=== PATIENT | female | born 1970 | race Caucasian/White ===

== ENCOUNTER 2021-09-30 13:35 | Outpatient (CLI) | payer MEDICARE, SELFPAY | END 2021-09-30 23:59 | disposition short-term general hospital (02) | LOC: LABSPEC 13:37 | PROVIDERS: Referring Provider Physician Assistant; Visit Provider Physician Assistant | DX: U07.1 COVID-19 (principal) | CPT/HCPCS: 87635; U0003; U0005 ==

== ENCOUNTER → 2025-02-03 | Outpatient (CLI) | payer MEDICARE, SELFPAY ==
[2025-02-03 17:04] LABS: Absolute Lymphocyte Count 2.33 X10^3/uL (0.83-4.51); Absolute Neutrophil Count 6.6 X10^3/uL (2.0-7.7); Basophil# 0.08 X10^3/uL; Basophil% 0.8 % (0-1); Hematocrit 47.4 % (37-47); Hemoglobin 15.2 g/dL (12.0-15.0); Lymphocyte # 2.33 X10^3/ul (0.83-4.51); Lymphocyte % 23.8 % (19-41); Mean Corp Hgb Conc 32.1 g/dL (32-36); Mean Corpuscular Volume 90.5 fL (81-99); Mean Platelet Vol. 11.7 fl (6.2-12.0); Monocyte# 0.55 X10^3/uL; Monocyte% 5.6 % (0-10); NRBC Flagged by Analyzer 0 % (0-5); Neutrophil # 6.58 X10^3/uL (2.7-7.7); Neutrophil % 67.4 % (47-70); Platelet Count 264 K/mm3 (150-450); RBC Distribution Width CV 13.4 % (11.6-14.6); RBC Distribution Width SD 45.3 fl (35.1-43.9); Red Blood Count 5.24 M/mm3 (4.2-5.4); White Blood Count 9.8 K/mm3 (4.4-11.0)
[2025-02-03 18:03] LABS: Cholesterol 251 mg/dL (<=200); High Density Lipoprotein 78 mg/dL; Low Density Lipoprotein Calc. 149 mg/dL; Triglycerides 120 mg/dL; Very Low Density Lipoprotein 24 mg/dL (5-40)
[2025-02-03 18:14] LABS: ALB/GLOB Ratio 1.5 RATIO (0.9-2.4); AST(SGOT) 19 U/L (<=31); Alanine Aminotransfer ALT/SGPT 18 U/L (<=34); Albumin, Serum 4.5 g/dL (3.5-5.0); Alkaline Phosphatase 108 U/L (35-104); Anion Gap 13 (5-15); BUN 18 mg/dL (4-19); BUN/Creat Ratio 34.6 RATIO (10-20); Calcium,Total 9.6 mg/dL (7.6-11.0); Carbon Dioxide 21.8 mmol/L (21.0-32.0); Chloride 105 mmol/L (98-108); Creatinine, Serum 0.51 mg/dL (0.70-1.20); EST Glomerular Filtration Rate 111 (>60); Glucose 78 mg/dL (70-99); Potassium 5.7 mmol/L (3.3-5.1); Protein, Total 7.6 g/dL (5.9-8.4); Sodium Level 140 mmol/L (133-145); Total Bilirubin 0.41 mg/dL (0.00-1.30)
== END | disposition home or self-care (01) ==
PROVIDERS: PCP Internal Medicine; Referring Provider Internal Medicine; Visit Provider Internal Medicine
DX: Z13.6 Encounter for screening for cardiovascular disorders (principal); Q05.7 Lumbar spina bifida without hydrocephalus; F41.8 Other specified anxiety disorders
CPT/HCPCS: 36415; 80053; 80061; 84439; 84443; 85025

== ENCOUNTER → 2025-02-12 | Outpatient (CLI) | payer MEDICARE, SELFPAY ==
--- NOTE | 2025-02-12 15:15 | BI_ITS ---
EXAM: SCRN MAMM (CAD)W/ADELINE BILAT 02/12/2025 CLINICAL HISTORY: F, Age 54 y/o , BREAST CANCER SCREENING TECHNIQUE: Bilateral screening digital breast tomosynthesis with 2D and 3D images. Computer aided detection. COMPARISON: Prior exam(s) dated 10/06/2023, 02/20/2023. FINDINGS: TISSUE DENSITY: The breast tissue is extremely dense which lowers the sensitivity of mammography. The mammogram demonstrates that the patient has dense breasts. Supplemental screening with whole breast ultrasound or MRI may be considered for further evaluation. Bilateral Breast Mammographic Findings: No significant masses, calcifications or other abnormalities are identified. BI/SCRN MAMM (CAD)W/ADELINE BILAT IMPRESSION: Right Breast: BIRADS 1 NEGATIVE. Left Breast: BIRADS 1 NEGATIVE. OVERALL FINAL ASSESSMENT: BIRADS 1 NEGATIVE. RECOMMENDATION: Routine annual follow-up in 1 Year A letter with findings and recommendations will be mailed to the patient. Reading Location: [id number]
== END | disposition home or self-care (01) ==
LOC: OPBI 14:29
PROVIDERS: PCP Internal Medicine; Referring Provider Internal Medicine; Visit Provider Internal Medicine
DX: Z12.31 Encounter for screening mammogram for malignant neoplasm of breast (principal)
CPT/HCPCS: 77063; 77067

== ENCOUNTER → 2025-02-28 | Outpatient (CLI) | payer MEDICARE, SELFPAY ==
[2025-02-28 17:33] LABS: Potassium 4.5 mmol/L (3.3-5.1)
== END | disposition home or self-care (01) ==
LOC: BIMLAB 13:55
PROVIDERS: PCP Internal Medicine; Visit Provider Internal Medicine
DX: E87.5 Hyperkalemia (principal)
CPT/HCPCS: 36415; 84132

== ENCOUNTER 2025-04-16 12:15 | Day surgery (SDC) | payer MEDICARE, SELFPAY ==
[2025-04-16] VITALS (7 sets, daily range): BP systolic 89–133; BP diastolic 40–66; PULSE 67–94; RESP 16–18; TEMP 36.4–37.9; O2SAT 96–98; BMI 17.7
--- NOTE | 2025-04-16 12:38 | PCM.PRE.AN2 ---
ASA Classification* ASA Classification ASA Classification: 3 Assessment & Plan Anesthesia* Anesthesia Assessment Anesthesia Assessment: Discussed sedation and/or anesthesia options, risks, benefits, and alternatives with patient/parents/legal guardian/POA. Questions invited. The patient/parents/legal guardian/POA seems to understand and agrees to proceed with anesthesia plan. Reviewed the physical assessment, medical history, allergy history and patient home medications list prior to surgery/procedure/anesthetic and documented any changes. Performed airway and anesthesia risk assessments. Anesthesia Type Anesthesia Type: MAC History Source History Obtained from:: Patient and Parent/ Guardian Anesthesia Focused Assessment* Oxygen Delivery Method: Room Air Airway Assessment Mouth opens: 2 cm Mallampati Score: IV Teeth Condition: Missing Neck Range of motion (ROM): Limited ROM Labs Anesthesia Preop lab: CBC WBC 9.8 K/mm3 (4.4-11.0) 02/03/25 16:05 02/03/25 RBC 5.24 M/mm3 (4.2-5.4) 02/03/25 16:05 02/03/25 Hgb 15.2 g/dL (12.0-15.0) H 02/03/25 16:05 02/03/25 Hct 47.4 % (37-47) H 02/03/25 16:05 02/03/25 Plt Count 264 K/mm3 (150-450) 02/03/25 16:05 02/03/25 CHEMISTRY Potassium 4.5 mmol/L (3.3-5.1) 02/28/25 13:55 02/28/25 Sodium 140 mmol/L (133-145) 02/03/25 16:05 02/03/25 BUN 18 mg/dL (4-19) 02/03/25 16:05 02/03/25 Creatinine 0.51 mg/dL (0.70-1.20) L 02/03/25 16:05 02/03/25 Glucose 78 mg/dL (70-99) 02/03/25 16:05 02/03/25 TSH 3.970 uIU/mL (0.300-4.200) 02/03/25 16:05 02/03/25 COAG Pre-Assessment Diagnosis/Proposed Procedure Planned Operative Procedure(s): COLONOSCOPY Anesthesia History 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 When Was Last Pacemaker Check QUESTION #4 FULL TEXT: You/Your Family Experience fever (hyperthermia) with Anesthesia Last Oral Intake Last Oral intake: Last Oral Intake NPO since Meds taken in AM with sips of water? Meds patient instructed to take am of surgery PONV PONV - real estate sales supervisor: PONV - real estate sales supervisor Female Yes 04/11/25 13:03 HX of Motion Sickness No 04/11/25 13:03 HX of N/V After Surgery No 04/11/25 13:03 Non-Smoker Yes 04/11/25 13:03 Duration of Surgery greater No 04/11/25 13:03 than 60 minutes Number of Risk Factors 2 04/11/25 13:03 PONV Score Moderate Risk 04/11/25 13:03 Height & Weight Height & Weight: Anesthesia: Height & Weight Height 4 ft 9 in 02/03/25 15:25 Respiratory Assessment Respiratory Assessment - real estate sales supervisor: Respiratory Tract Infection Hx - real estate sales supervisor Hx Respiratory Tract Infection No 04/11/25 13:03 STOP Sleep Apnea STOP Sleep Apnea - real estate sales supervisor: STOP Sleep Apnea - real estate sales supervisor Hx Hypertension No 04/11/25 13:03 Hx Sleep Apnea No 04/11/25 13:03 CPAP BIPAP Do you snore loudly (louder No 04/11/25 13:03 than talking or can be heard Do you often feel tired/ No 04/11/25 13:03 fatigued/ sleepy during daytime? Has anyone observed you stop No 04/11/25 13:03 breathing during sleep? STOP Results Negative 04/11/25 13:03 QUESTION #5 FULL TEXT : Do you snore loudly (louder than talking or can be heard through closed doors)? Tobacco Use History Tobacco Use History - real estate sales supervisor: Tobacco Use History - real estate sales supervisor Tobacco Use Smoking Status Never smoker 04/11/25 13:03 Hx Tobacco Use No 04/11/25 13:03 Years Smoking Packs Smoked per Day Smoking Cessation Date was within the last 15 years Hx Smoking Cessation Date Hx Smoking Cessation Counseling Hematologic Medial History Hematologic Hx - real estate sales supervisor: Hematologic Medical Hx - manager forms Hx of Blood Transfusion No 04/11/25 13:03 Hx of Transfusion in last 3 No 04/11/25 13:03 Months Date of Last Transfusion (if within last 3 months) Ever experience any problems No 04/11/25 13:03 with transfusion(s)? Specify any problems Hx of Preganancy in last 3 No 04/11/25 13:03 Months Nurse Filling Out Transfusion [email or web address] 04/11/25 13:03 & Questions: Date: 04/11/25 04/11/25 13:03 Time: 13:08 04/11/25 13:03 Patient unable to answer at this time (ie. confused, unrespo /Reproduction History /Reproductive History - real estate sales supervisor: /Reproductive Hx- real estate sales supervisor Hx Now Gestational Age (in weeks): EDC: Hx Hx Para Hx Section SAB PFSH Medical History (Updated 04/11/25 @ 13:11 by Dave Dawson) Wears partial dentures Uses wheelchair Serum potassium elevated Chronic pain Encounter to establish care Colon cancer screening Health care maintenance Depression with anxiety Spina bifida Ileostomy in place Neuropathy, lower extremity Muscle spasms of lower extremity Fatigue Home Medications ?Medication ?Instructions ?Recorded ?Last Taken ?Type tizanidine 4 mg capsule 4 mg PO QHS PRN muscle spasticity 02/03/25 04/15/25 History sod picosulf 10 mg-magnes 3.5 175 ml PO QAM 1 dose #350 mL 02/12/25 04/15/25 Rx gram-citric 12 gram/175 mL oral solution (Clenpiq) Handicap Placard #2 ea 02/13/25 Unknown Rx Allergy/AdvReac Type Severity Reaction Status Date / Time red dye Allergy Other Verified 04/11/25 13:02 Sulfa (Sulfonamide AdvReac Rash Verified 04/11/25 13:02 Antibiotics) Family History Mother Breast cancer Father Hypertension Heart disease Unknown Brain cancer Grandmother Breast cancer Hypertension Grandfather Emphysema lung Other Spina bifida Surgical History Ventriculo-peritoneal shunt status S/P ventricular shunt placement H/O lithotripsy Social History adopted: No household members: family current occupational status: disabled pets and animals: No Smoking Status: Never smoker alcohol intake: current alcohol intake frequency: a few times a month substance use type: does not use diet: lactose free caffeine: No frequency: other details: In wheelchair do you feel safe at home: Yes Review of Systems (Anesthesia) ROS Narrative System reviewed and no additional complaints, except as documented.
[2025-04-16] MEDS: Lactated Ringers 1,000 ML 15 ML IV (12:52)
--- NOTE | 2025-04-16 14:22 | PCM.HP.STD ---
HPI - General General Date of Admission: 04/16/25 Date of Service: 04/16/25 Chief Complaint: Screening colonoscopy HPI Narrative TENNILLE DEAL, is a 54 F who presentsChief Complaint: colonoscopy Referred to [facility] by PCP Dr. Kyle for screening colonoscopy. Pt with a complex medical hx and main hospice patient care secretary being her father. Pt mother was primary hospice patient care secretary until she recently . She has a past medical hx of spina bifida with no feeling below her waist. She has bowel movements by digital rectal stimulation. She denies constipation, diarrhea, n/v, heartburn or blood in her stool. She has no family hx of colon cancer. New sod picosulf-mag ox-citric ac 10 mg-3.5 gram- 12 gram/175 mL (Clenpiq) administer approximately 5 hours before colonoscopy 175 mL PO QAM 350 mL 0RF 1 dose ondansetron 4 mg PO Q8H 10 tabs 0RF PFSH Medical History Wears partial dentures Uses wheelchair Serum potassium elevated Chronic pain Encounter to establish care Colon cancer screening Health care maintenance Depression with anxiety Spina bifida Ileostomy in place Neuropathy, lower extremity Muscle spasms of lower extremity Fatigue Home Medications ?Medication ?Instructions ?Recorded ?Last Taken ?Type tizanidine 4 mg capsule 4 mg PO QHS PRN muscle spasticity 02/03/25 04/15/25 History sod picosulf 10 mg-magnes 3.5 175 ml PO QAM 1 dose #350 mL 02/12/25 04/15/25 Rx gram-citric 12 gram/175 mL oral solution (Clenpiq) Handicap Placard #2 ea 02/13/25 Unknown Rx Allergy/AdvReac Type Severity Reaction Status Date / Time red dye Allergy Other Verified 04/11/25 13:02 Sulfa (Sulfonamide AdvReac Rash Verified 04/11/25 13:02 Antibiotics) Family History Mother Breast cancer Father Hypertension Heart disease Unknown Brain cancer Grandmother Breast cancer Hypertension Grandfather Emphysema lung Other Spina bifida Surgical History Ventriculo-peritoneal shunt status S/P ventricular shunt placement H/O lithotripsy Social History adopted: No household members: family current occupational status: disabled pets and animals: No Smoking Status: Never smoker alcohol intake: current alcohol intake frequency: a few times a month substance use type: does not use diet: lactose free caffeine: No frequency: other details: In wheelchair do you feel safe at home: Yes ROS Constitutional Constitutional: Denies fatigue, fever(s), poor appetite, weight gain or weight loss Gastrointestinal Gastrointestinal: Denies belching, bloating, change in bowel habits, change in stool character, chewing difficulty, coffee ground emesis, constipation, cramping, diarrhea, dyspepsia, dysphagia, early satiety, excessive flatus, fecal incontinence, heartburn, hematemesis, hematochezia, hemorrhoids, loose stools, melena, nausea, odynophagia, rectal bleeding, tenesmus, vomiting or weight changes Vital Signs Vital Signs Vital Signs: 04/16/25 12:41 04/16/25 12:41 04/16/25 12:45 Temperature 97.6 F L Temperature Source Temporal Respiratory Rate 16 Respiratory Pattern Normal Blood Pressure Source Monitor Blood Pressure Position Sitting Blood Pressure Location Left Arm Pulse Ox 98 Oxygen Delivery Method Room Air Room Air Weight Weight: 71 lb Body Mass Index (BMI) 17.7 Physical Exam Const alert, oriented x3, no apparent distress and healthy appearing General Appearance: cooperative GI normal to inspection, nondistended, normoactive bowel sounds, soft to palpation, non-tender and non-distended Percussion: normal to percussion Rectal Exam: deferred Assessment & Plan Assessment/Plan (1) Encounter for screening colonoscopy: PLAN: Assessment and Plan Assessment and Plan (1) Encounter for screening colonoscopy: Status: Acute Plan: Tennille is a 54 yo female pt with spina bifida here today for consultation for screening colonoscopy. Pt has no hx of screening colonoscopy. She denies all GI symptoms including constipation, diarrhea, heartburn, blood in stool or n/v. She has no family hx of colon cancer. I have sent in clenpiq bowel prep for her. She will be scheduled for colonoscopy. -Colonoscopy -Bowel prep sent -f/u after procedure Medications:
--- NOTE | 2025-04-16 15:21 | OP.COLON_ITS ---
Patient Name: Tennille Braden Procedure Date: 04/16/2025 2:29 PM Date of : 1970 Age: 54 Procedure: Colonoscopy Indications: Screening for colorectal malignant neoplasm Providers: Germán Cherry DO Medicines: Monitored Anesthesia Care Patient Profile: This is a 54 year old female. Refer to note in patient chart for documentation of history and physical. Last Colonoscopy: none. The patient's first colonoscopy is today. Complications: No immediate complications. Procedure: Pre-Anesthesia Assessment: - Prior to the procedure, a History and Physical was performed, and patient medications and allergies were reviewed. The patient is competent. The risks and benefits of the procedure and the sedation options and risks were discussed with the patient. All questions were answered and informed consent was obtained. Patient identification and proposed procedure were verified by the physician in the pre-procedure area. Mental Status Examination: alert and oriented. Airway Examination: normal oropharyngeal airway and neck mobility. Respiratory Examination: clear to auscultation. CV Examination: normal. Prophylactic Antibiotics: The patient does not require prophylactic antibiotics. Prior Anticoagulants: The patient has taken no anticoagulant or antiplatelet agents except for NSAID medication. ASA Grade Assessment: II - A patient with mild systemic disease. After reviewing the risks and benefits, the patient was deemed in satisfactory condition to undergo the procedure. The anesthesia plan was to use monitored anesthesia care (MAC). Immediately prior to administration of medications, the patient was re-assessed for adequacy to receive sedatives. The heart rate, respiratory rate, oxygen saturations, blood pressure, adequacy of pulmonary ventilation, and response to care were monitored throughout the procedure. The physical status of the patient was re-assessed after the procedure. After I obtained informed consent, the scope was passed under direct vision. Throughout the procedure, the patient's blood pressure, pulse, and oxygen saturations were monitored continuously. The Colonoscope was introduced through the anus and advanced to the cecum, identified by appendiceal orifice and ileocecal valve. The colonoscopy was performed without difficulty. The patient tolerated the procedure well. The quality of the bowel preparation was adequate. The ileocecal valve, appendiceal orifice, and rectum were photographed. Scope In: 3:06:48 PM Scope Withdrawal Time 0 hours 6 minutes 20 seconds Scope Out: 3:17:44 PM Total Procedure Duration Time 0 hours 10 minutes 56 seconds Findings: The perianal and digital rectal examinations were normal. Moderate rectal prolapse was present. The exam was otherwise without abnormality on direct and retroflexion views. Impression: - Rectal prolapse. - The examination was otherwise normal on direct and retroflexion views. - No specimens collected. Recommendation: - Discharge patient to home. - Resume previous diet. - Continue present medications. - Repeat colonoscopy in 10 years for screening purposes. Procedure Code(s): --- Professional --- 44417, Colonoscopy, flexible; diagnostic, including collection of specimen(s) by brushing or washing, when performed (separate procedure) CPT copyright 2021 [employer]. All rights reserved. The codes documented in this report are preliminary and upon [employer] review may be revised to meet current compliance requirements. Germán Cherry DO 04/16/2025 3:21:22 PM This report has been signed electronically. Number of Addenda: 0 Note Initiated On: 04/16/2025 2:29 PM
--- NOTE | 2025-04-16 15:22 | OP.PROVAT_ITS ---
04/16/2025 Angeline Kyle MD [address] [place] [address] [place] [address] Re : Colonoscopy procedure for Tennille Braden Dear Dr. Kyle This procedure was performed on Wednesday, April 16, 2025. My impressions and recommendations are as follows: Impressions : - Rectal prolapse. - The examination was otherwise normal on direct and retroflexion views. - No specimens collected. Recommendations : - Discharge patient to home. - Resume previous diet. - Continue present medications. - Repeat colonoscopy in 10 years for screening purposes. My findings are described in the full procedure note, which is enclosed. If I can be of further assistance, please feel free to contact me at . Sincerely, Germán Cherry, 04/16/2025 3:21:22 PM This report has been signed electronically.
--- NOTE | 2025-04-16 15:27 | PCM.POST.ANE ---
Anesthesia: Postop Eval I Current Vital Signs Temperature: 99.3 F Pulse Rate: 67 Blood Pressure: 99/40 Respiratory Rate: 16 Pulse Ox: 96 Oxygen Delivery Method: Room Air Assessment Airway patent: Yes Spontaneous unlabored respirations: Yes Mental status: Awake and Calm nausea: No Vomiting: No Anesthesia Complication: No Fluid Hydration Crystalloid volume administer (ml): 400 Total IV fluid infused: 400 Progress Note Anesthesia document: Postop Eval 1 completed: Yes
--- NOTE | 2025-04-16 15:34 | PCM.POSTANE2 ---
Anesthesia Postop Eval I Sum Postop Eval Completion status Anesthesia document: Postop Eval 1 completed: Yes Anesthesia Postop Eval I Summary Anesthesia Postop Eval I Summary: Anesthesia Postop Eval I: Assessment Summary Airway patent Yes 04/16/25 15:27 [email or web address] Spontaneous unlabored Yes 04/16/25 15:27 [email or web address] respirations Mental status Awake,Calm 04/16/25 15:27 [email or web address] nausea No 04/16/25 15:27 [email or web address] Vomiting No 04/16/25 15:27 [email or web address] Anesthesia Postop Eval I: Fluid Summary Crystalloid volume administer 400 04/16/25 15:27 [email or web address] (ml) Colloids volume administered ( ml) Blood Product volume administered (ml) Total IV fluid infused 400 04/16/25 15:27 [email or web address] Anesthesia Postop Eval I: Summary Notes Anesthesia Complication No 04/16/25 15:27 [email or web address] Anesthesia Complication Comment: Post-operative progress note Anesthesia: Postop Eval II Evaluation Mental status: Asleep Pain Level: 0 nausea: No Vomiting: No Progress Note Post-operative progress note: Tolerated procedure well. Resting peacefully with VSS Complications Anesthesia Complication: No
== END 2025-04-16 16:25 | disposition home or self-care (01) ==
LOC: EN 12:19 → AC 12:20
PROVIDERS: PCP Internal Medicine; Referring Provider Internal Medicine; Visit Provider Internal Medicine Gastroenterology
PROC: 0DJD8ZZ Inspection of Lower Intestinal Tract, Via Natural or Artificial Opening Endoscopic (ICD-10-PCS; CPT 45378; principal; 2025-04-16 12:55)
DX: Z12.11 Encounter for screening for malignant neoplasm of colon (principal); Q05.9 Spina bifida, unspecified; K62.3 Rectal prolapse; Z98.2 Presence of cerebrospinal fluid drainage device
CPT/HCPCS: G0121; J2405